=== PATIENT | female | born 1965 | race Caucasian/White ===

== ENCOUNTER → 2017-05-24 15:40 | Outpatient (CLI) | payer OTHER | END | disposition home or self-care (01) | LOC: D.MAMMO 14:30 | DX: Z12.31 Encounter for screening mammogram for malignant neoplasm of breast (principal) ==

== ENCOUNTER 2018-01-03 06:44 | Outpatient (CLI) | payer OTHER ==
[~2018-01-03] VITALS: Ht 172.7 cm; Wt 79.5 kg
--- NOTE | ~2018-01-03 | HEMODYNAMI ---
PATIENT:RICKEY WHIPPLE MEDICAL RECORD: [id number] : 69 LOCATION:[facility] ADMISSION DATE: 01/03/18 Generatedon:01/03/20188:35 Patient name: RICKEY WHIPPLE Patient #: [id number] SSN: [id number] : 1965 Date of study: 01/03/2018 Page: Of Hemodynamic Procedure Report Patient Data Patient Demographics Procedure consent was obtained First Name: RICKEY Gender: Female Last Name: SOLE : 1965 Middle Initial: KATE Age: 52 year(s) Patient #: [id number] Race: SSN: [id number] Additional ID: [id number] Contact details [address]: [address] [place] [address] RO[address] State: [place] City: [place] Zip code: [address] Admission Admission Data Admission Date: 01/03/2018 Admission Time: 6:44 Procedure Procedure Types Cath Procedure Diagnostic Procedure LHC LHC w/Coronaries Procedure Description Procedure Date Procedure Date: 01/03/2018 Procedure Start Time: 8:21 Procedure End Time: 8:34 Procedure Staff Name Function Zaida Arriola RT Monitor Amena Simeon RT Scrub Mukesh Meraz RN Nurse Claude Carrasco MD Performing Physician Procedure Data Cath Procedure Fluoroscopy Diagnostic fluoroscopy Total fluoroscopy Time: 2.2 time: 2.2 min min Diagnostic fluoroscopy Total fluoroscopy dose: 211 dose: 211 mGy mGy Contrast Material Contrast Material Type Amount (ml) Isovue 300 31 Entry Location Entry Primary Successful Side Size Upsize Upsize Entry Closure Villanueva ccessful Closure Location (Fr) 1 (Fr) 2 (Fr) Remarks Device Remarks Radial Right 6 Fr Mechanical artery Short Compression Estimated blood loss: 5 ml Diagnostic catheters Device Type Used For End Catheter Placement DIAGNOSTIC Holland 110cm 5 Multi-vessel Fr catheter ([id number]) Angiography Procedure Complications No complications Procedure Medications Medication Administration Route Dosage Oxygen etCO2 Nasal cannula 2 l/min Heparin Flush Bag added to field 2 bags (1000units/500ml NS) 0.9% NaCl I.V. 100 ml/hr Radial Cocktail added to field 1 syringe (Verapomil 2mg/Nitro 400mcg/Heparin 1500units) Fentanyl I.V. 50 mcg Versed I.V. 1 mg Radial Cocktail I.A. 1 syringe (Verapomil 2mg/Nitro 400mcg/Heparin 1500units) Fentanyl I.V. 50 mcg Versed I.V. 1 mg Hemodynamics Rest Heart Rate: 119 (bpm) Pressure Samples Time Site Value (mmHg) Purpose Heart Use Rate(bpm) 8:25 LV 196/9,43 EDP 129 Gradients Valve Time Site Site Mean SEP/DFP Peak To Heart Use 1 2 (mmHg) (sec/min) Peak Rate (mmHg) (bpm) Aortic 8:26 LV AO 130 Snapshots Pre Cath Intra NCS Post Cath Vital Signs Time Heart Resp SPO2 etCO2 NIBP (mmHg) Rhythm Pain Sedation Rate (ipm) (%) (mmHg) Status Level (bpm) 8:12:38 114 16 100 33.7 146/86(111) NSR 0 (11) 10(A) , No pain 8:16:52 115 16 100 31.5 146/83(107) NSR 0 (11) 10(A) , No pain 8:21:06 115 17 98 34.5 143/79(112) NSR 0 (11) 10(A) , No pain 8:25:18 125 20 97 35.2 126/62(88) NSR 0 (11) 10(A) , No pain 8:29:30 113 21 96 36.7 123/64(88) NSR 0 (11) 10(A) , No pain 8:33:40 105 19 96 33.7 128/72(100) NSR 0 (11) 10(A) , No pain Medications Time Medication Route Dose Verified Delivered Reason Notes Effectiveness by by 8:13:37 Oxygen etCO2 2 l/min Claude Mayorga Per Nasal Danilo Meraz RN physician cannula 8:13:46 Heparin Flush added 2 bags Claude Mayorga used for Bag to Danilo Meraz RN procedure (1000units/500ml field FUENTES NS) 8:13:55 0.9% NaCl I.V. 100 Claude Mukesh Per ml/hr Danilo Meraz RN physician 8:14:04 Radial Cocktail added 1 Claudeluis enrique Hoffmanny used for (Verapomil to syringe Danilo Meraz RN procedure 2mg/Nitro field 400mcg/Heparin 1500units) 8:20:20 Fentanyl I.V. 50 mcg Claude Mukesh for sedation Danilo Meraz RN, MD 8:20:58 Versed I.V. 1 mg Claude Mukesh for sedation Danilo Meraz RN, MD 8:24:08 Radial Cocktail I.A. 1 Claude Claude for (Verapomil syringe Danilo Carrasco MD vasodilation 2mg/Nitro 400mcg/Heparin 1500units) 8:24:14 Fentanyl I.V. 50 mcg Claude Mayorga for sedation Danilo Meraz RN, MD 8:24:18 Versed I.V. 1 mg Claude Mukesh for sedation Danilo Meraz RN, MD Procedure Log Time Note 7:55:32 Informed consent obtained and on chart 7:55:38 Diagnostic Cath Status : Elective 7:56:00 Zaida Arriola RT(R) sent for patient. Start room use. 7:56:01 Time tracking: Regular hours (M-F 7:00 - 5:00) 7:56:05 Plan of Care:Hemodynamics will remain stable., Cardiac rhythm will remain stable., Comfort level will be maintained., Respiratory function will remain adequate., Patient/ family verbilizes understanding of procedure., Procedure tolerated without complication., Recovers from procedure without complications.. 8:10:44 Vital chart was started 8:13:37 Oxygen 2 l/min etCO2 Nasal cannula was administered by Mukesh Meraz RN; Per physician; 8:13:46 Heparin Flush Bag (1000units/500ml NS) 2 bags added to field was administered by Mukesh Meraz RN; used for procedure; 8:13:55 0.9% NaCl 100 ml/hr I.V. was administered by Mukesh Meraz RN; Per physician; 8:14:04 Radial Cocktail (Verapomil 2mg/Nitro 400mcg/Heparin 1500units) 1 syringe added to field was administered by Mukesh Meraz RN; used for procedure; 8:16:16 Patient received from Pre/Post Procedure Room to [facility] 2 Alert and oriented. Tansferred to table in Supine position. 8:16:17 Warm blankets applied, and zara hugger turned on for patient comfort. 8:16:17 Correct patient and procedure confirmed by team. 8:16:17 ECG and BP/O2 sat monitors applied to patient. 8:16:18 Baseline sample Acquired. 8:16:23 Rhythm: sinus tachycardia 8:16:24 Full Disclosure recording started 8:16:29 H&P Date Dictated: 01/03/2018 Within 30 days and on chart., H&P Addendum completed by physician on day of procedure. (MUST COMPLETE FOR ALL OUTPATIENTS). 8:16:30 Pre-procedure instructions explained to patient. 8:16:30 Pre-op teaching completed and patient verbalized understanding. 8:16:32 Family in waiting room. 8:16:35 Patient NPO since Midnight. 8:16:37 Is the patient allergic to Iodine/contrast media? No. 8:16:39 Was the patient premedicated? No 8:16:40 Is patient on blood thinner?Yes 8:16:42 ACC The patient was administered the following blood thiners within the last 24 hours: ACCPlavix 8:16:44 Patient diabetic? No. 8:16:55 Previous problem with sedation/anesthesia? Yes BP rises 8:17:01 Snore? Yes 8:17:03 Sleep apnea? No 8:17:44 Deviated septum? No 8:17:45 Opens mouth fully? Yes 8:17:45 Sticks out tongue? Yes 8:17:48 Airway obstruction? No ? 8:17:50 Dentures? No ? 8:17:54 Pre procedure: right dorsailis pedis pulse 2+ Normal; easily identifiable; not easily obliterated 8:17:55 Pre procedure: left dorsailis pedis pulse 2+ Normal; easily identifiable; not easily obliterated 8:17:57 Patient pain scale 0/10 ?. 8:18:00 Modified Jerald's test Radial < 7 seconds 8:18:11 IV patent on arrival in left forearm with 0.9% NaCl at O. 8:18:14 Lab results completed and on chart. 8:18:21 Right Radial & Right Groin area was prepped with chlora-prep and draped in sterile fashion 8:18:22 Alarms reviewed by R. N. 8:18:23 Sharps counted by scrub and verified by R.N. 8:18:25 Physician arrived 8:18:25 --------ALL STOP TIME OUT------ 8:18:25 Final Timeout: patient, procedure, and site verified with staff and physician. All members of the team are in agreement. 8:18:27 Right Radial & Right Groin site verified by team. 8:18:30 Physical assessment completed. ASA score P 2 - A patient with mild systemic disease as per Claude Carrasco MD. 8:18:35 Sedation plan: IV Moderate Sedation Medication:Versed, Fentanyl 8:20:20 Fentanyl 50 mcg I.V. was administered by Mukesh Meraz RN; for sedation; 8:20:58 Versed 1 mg I.V. was administered by Mukesh Meraz RN; for sedation; 8:21:21 Use device set Radial Dx or PCI 8:21:22 ACIST Syringe (12772) opened to sterile field. 8:21:23 Medline Cath Pack ([id number]) opened to sterile field. 8:21:23 Bag Decanter (2002S) opened to sterile field. 8:21:24 DIAGNOSTIC WIRE .035 260cm J wire (208079) opened to sterile field. 8:21:24 ACIST Hand Control (70946) opened to sterile field. 8:21:25 ACIST Manifold (89219) opened to sterile field. 8:21:25 Tegaderm 4 x 4 (1626W) opened to sterile field. 8:21:26 MBrace Wrist Support ([id number]) opened to sterile field. 8:21:32 SHEATH 6Fr Prelude Radial ([id number]) opened to sterile field. 8:21:36 Procedure started. 8:21:40 Local anesthetic to right radial artery with Lidocaine 2% by Zaida Arriola RT(R).INITIAL ACCESS ONLY 8:21:41 Access obtained with 4Fr micropunture. 8:21:49 A 6 Fr Short sheath was inserted into the Right Radial artery 8:24:08 Radial Cocktail (Verapomil 2mg/Nitro 400mcg/Heparin 1500units) 1 syringe I.A. was administered by Claude Carrasco MD; for vasodilation; 8:24:11 A DIAGNOSTIC Holland 110cm 5 Fr catheter (564218) was advanced over the wire and used for Multi-vessel Angiography. 8:24:14 Fentanyl 50 mcg I.V. was administered by Mukesh Meraz RN; for sedation; 8:24:18 Versed 1 mg I.V. was administered by Mukesh Meraz RN; for sedation; 8:26:00 LV hemodynamics recorded. 8:26:01 LV gram done using GOODMAN 8:26:04 Injector settings: Ml/sec: 5, Volume: 15, 8:26:54 RCA angiography performed. 8::57 Injector settings: Ml/sec: 3, Volume: 6, 8:27:42 LCA angiography performed. 8:27:45 Injector settings: Ml/sec: 3, Volume: 6, 8:28:25 Catheter removed. 8:31:09 TR BAND Standard ([id number]) opened to sterile field. 8:31:17 Sheath removed intact; hemostasis achieved with Mechanical Compression to the Right Radial artery. 8:31:24 Procedure ended.(Physican Out) 8:32:01 Fluoroscopy time 02.20 minutes. 8:32:09 Fluoroscopy dose: 211 mGy 8:32:09 Flurop Dose total: 211 8:32:22 Contrast amount:Isovue 300 31ml. 8:32:23 Sharps counted by scrub and verified by R.N. 8:32:29 TR band inflated with 10cc of air. 8:33:03 Insertion/operative site no bleeding no hematoma. 8:33:09 Post right radial artery:stable 8:33:11 Post Procedure Pulses reassessed and unchanged 8:33:14 Post procedure rhythm: unchanged. 8:33:17 Estimated blood loss: 5 ml 8:33:18 Post procedure instruction explained to patient.Patient verbalizes understanding. 8:33:18 Patient needs reinforcement of post procedure teaching. 8:33:31 Procedure type changed to Cath procedure, Diagnostic procedure, LHC, LHC w/Coronaries 8:33:47 Procedure and supply charges have been captured, reviewed, submitted and are correct. 8:33:52 Procedure Complication : No complications 8:33:54 Vital chart was stopped 8:33:54 See physician's report for complete and final results. 8:33:57 Report given to Pre/Post Procedure Room. 8:33:59 Patient transfered to Pre/Post Procedure Room with Stretcher. 8:34:02 Procedure ended. 8:34:02 Full Disclosure recording stopped 8:34:06 End room use (Document Last) Device Usage Item Name Manufacture Quantity Catalog Number Hospital Part Current M inimal Lot# / Charge Number Stock Stock Serial# Code ACIST Syringe Acist 1 86711 800978 732964 771427 2 0 (87872) [employer] Medline Cath Cardinal 1 [id number] 403005 24488 494846 5 Pack Health ([id number]) Bag Decanter Microtek 1 2002S 909985 56315 345704 5 (2001S) Medical Inc. DIAGNOSTIC WIRE St [place] 1 905037 290303 053139 501915 3 0 .035 260cm J wire (890967) ACIST Hand Acist 1 30266 250696 478123 279480 5 Control (39547) [employer] ACIST Manifold Acist 1 49208 176751 409259 278064 5 (63224) [employer] Tegaderm 4 x 4 3M 1 1626W 695210 851079 736619 5 (1626W) MBrace Wrist Advanced 1 140-0250-00 825719 92709 385760 5 Support Vascular ([id number]) Dynamics SHEATH 6Fr Merit 1 [id number] 285939 393760 826522 5 Prelude Radial Medical ([id number]) DIAGNOSTIC Terumo 1 40-4981 373756 110108 079006 5 Holland 110cm 5 Fr catheter (221001) TR BAND Terumo 1 [id number] 845650 257078 298015 4 0 Standard ([id number]) Signature Audit Ranger Stage Time Signature Unsigned Intra-Procedure 01/03/2018 Zaida Arriola 8:35:20 AM RT(R) Signatures Monitor : Zaida Arriola RT Signature : Date : Time : [address] [address]
[2018-01-03] MEDS ORDERED: ZANTAC150 MG PO (06:45)
[2018-01-03] MEDS ORDERED: MULTIPLE VITAMI1 TA1 PO (06:46)
[2018-01-03] MEDS ORDERED: ZOLOFT100 MG PO (06:46)
[2018-01-03] MEDS ORDERED: VITAMIN D31000 UNI2 PO (06:47)
[2018-01-03] MEDS ORDERED: OS-CAL500 MG PO (06:48)
[2018-01-03] MEDS ORDERED: REPATHA SY140 MG/1 M SC (06:49)
[2018-01-03 07:01] VITALS: BP 138/78; Ht 172.7 cm; Wt 79.5 kg
[2018-01-03 07:17] LABS: BASOPHILS 0.2 % (0-2); EOSINOPHILS 1.8 % (0-7); HEMATOCRIT 41.1 % (36.0-48.0); HEMOGLOBIN 13.9 g/dL (12-16); IMMATURE GRANULOCYTES 0.2 % (0-5); LYMPHOCYTES 34.1 % (15-50); MCH 31.8 pg (26.0-34.0); MCHC 33.8 g/dL (31.0-37.0); MCV 94.1 fL (80.0-100.0); MEAN PLATELET VOLUME 10.3 fL (7.4-10.4); MONOCYTES 10.5 % (2-11); NEUTROPHILS 53.2 % (40-80); PLATELET COUNT 266 10x3/uL (130-400); RBC 4.37 10x6/uL (4.00-5.40); RDW 12.3 % (11.5-14.5); WBC 5.5 10x3/uL (4.8-10.8)
[2018-01-03 07:56] LABS: CALC OSMOLALITY 285 mosm/kg (275-300); CALCIUM 9.3 mg/dL (8.5-10.1); CARBON DIOXIDE 26.2 mmol/L (21.0-32.0); CHLORIDE - SERUM 106 mmol/L (98-107); CREATINE KINASE 101 UL (21-215); CREATININE - SERUM 0.8 mg/dL (0.6-1.3); GLUCOSE 90 mg/dL (74-106); POTASSIUM - SERUM 3.7 mmol/L (3.5-5.1); SODIUM 144 mmol/L (136-145); UREA NITROGEN 10 mg/dL (7-18); eGFR NON AFRICAN AMERICAN 80 mL/min (90-120)
[2018-01-03 16:10] LABS: ALBUMIN 4.1 g/dL (3.4-5.0); BILIRUBIN - DIRECT 0.13 mg/dL (0.00-0.30); BILIRUBIN - INDIRECT 0.35 mg/dL (0.00-1.00); BILIRUBIN - TOTAL 0.48 mg/dL (0.2-1.3); CHOL - HDL RATIO 1.9 ratio (2.3-4.1); LDL-HDL RATIO 0.8 ratio (1.5-3.5); PROTEIN - SERUM 7.8 g/dL (6.4-8.2)
== END 2018-01-03 11:00 | disposition home or self-care (01) ==
LOC: D.CATH 06:44
PROVIDERS: Internal Medicine Cardiovascular Disease
DX: R07.9 Chest pain, unspecified (principal); R94.39 Abnormal result of other cardiovascular function study; E78.01 Familial hypercholesterolemia; Z01.812 Encounter for preprocedural laboratory examination

== ENCOUNTER → 2018-05-25 16:55 | Outpatient (CLI) | payer OTHER ==
[2018-01-03 07:01] VITALS: BMI 26.6
[~2018-05-25 16:55] MED LIST: MULTIPLE VITAMI1 TA1 PO; OS-CAL500 MG PO; REPATHA SY140 MG/1 M SC; VITAMIN D31000 UNI2 PO; ZANTAC150 MG PO; ZOLOFT100 MG PO
== END | disposition home or self-care (01) ==
LOC: D.MAMMO 13:00
DX: Z12.31 Encounter for screening mammogram for malignant neoplasm of breast (principal)

== ENCOUNTER → 2018-11-23 10:40 | Day surgery (SDC) | payer OTHER ==
[~2018-11-23] VITALS: Ht 172.7 cm; Wt 81.8 kg
[2018-11-23 11:43] LABS: HEMATOCRIT 42.2 % (36.0-48.0); HEMOGLOBIN 14.3 g/dL (12-16); MCHC 33.9 g/dL (31.0-37.0); MCV 91.3 fL (80.0-100.0); MEAN PLATELET VOLUME 10.3 fL (7.4-10.4); RBC 4.62 10x6/uL (4.00-5.40); RDW 12.9 % (11.5-14.5); WBC 6.3 10x3/uL (4.8-10.8)
[2018-11-23 11:49] VITALS: BP 131/75; Ht 172.7 cm; Wt 81.8 kg
--- NOTE | 2018-11-24 17:19 | OP ---
PATIENT NAME: RICKEY KENDALL MEDICAL RECORD: [id number] :69 LOCATION:D.OPS ADMISSION DATE: SURGEON: BOO RICHARD MD DATE OF OPERATION: 11/23/2018 PROCEDURE: Colonoscopy with polypectomy. REFERRING PHYSICIAN: Dr. Blanca Estes. INDICATIONS: Ms. Kendall is a pleasant 53-year-old woman with a history of achalasia status post Heller myotomy, who presents for outpatient screening colonoscopy. PREMEDICATIONS: Total IV anesthesia (propofol 200 mg). INSTRUMENT: Olympus video colonoscope. PROCEDURE AND FINDINGS: After receiving informed consent, Ms. Kendall was placed in left lateral decubitus position, sedated as per anesthesia. After achieving adequate level of sedation, digital rectal exam was performed that showed few external hemorrhoidal tags. No fissures or fistulas. Normal sphincter tone, no palpable rectal masses. Colonoscope was introduced per rectally and advanced to the cecum without difficulty. The cecum, IC valve, and appendiceal orifice were identified and appeared normal. As the colonoscope was withdrawn, careful inspection was made of the hernandez of the colon. Overall mucosa had normal vascular and fold pattern. No masses, ulcers or diverticula were seen in the colon. In the descending colon was a diminutive 0.25-0.3 cm sessile polyp removed with hot biopsy forcep technique. Retroflexion in rectum showed mild internal hemorrhoids with a hemorrhoidal tag. Good prep was present. Ms. Kendall tolerated the procedure well, no immediate complications. ASSESSMENT: 1. Small descending colon polyp status post polypectomy. 2. Mild internal hemorrhoids. RECOMMENDATIONS: 1. Follow up histopathology. 2. High fiber diet. 3. Recommend surveillance colonoscopy in 5 years. TRANSINT:[id number] Voice Confirmation ID: [id number] DOCUMENT ID: [id number] BOO RICHARD MD at 9261 CC: BLANCA ESTES [id number] DICTATION DATE: 11/23/18 1322 MEDICAL DIAGNOSTIC RADIOGRAPHER: 11/23/18 1416 [facility] 11/23/18 [place] [address]
== END | disposition home or self-care (01) ==
LOC: D.OPS 10:40
PROVIDERS: Anesthesiology; ATTEND Internal Medicine Gastroenterology
DX: Z12.11 Encounter for screening for malignant neoplasm of colon (principal); K63.5 Polyp of colon

== ENCOUNTER 2019-06-18 08:00 | Outpatient (CLI) | payer OTHER ==
[2018-11-23 11:49] VITALS: BMI 27.4
== END 2019-06-18 23:59 | disposition home or self-care (01) ==
LOC: D.MAMMO 08:00
PROVIDERS: ATTEND Family Medicine
DX: Z12.31 Encounter for screening mammogram for malignant neoplasm of breast (principal)